=== PATIENT | male | born 1950 | race African-American/Black ===

== ENCOUNTER 2017-02-04 18:14 | Emergency (ER) | payer MEDICARE, OTHER ==
[~2017-02-04] VITALS: Ht 188 cm; Wt 110.0 kg
[~2017-02-04 18:14] MED LIST: AMLO2.5T45 PO; ASPI-986 PO; BACL-141 PO; FURO-152 PO; LISI-186 PO; METO-396 PO
[2017-02-04 20:41] LABS: CLARITY URINE CLEAR (CLEAR); COLOR URINE YELLOW (YELLOW); KETONES URINE NEGATIVE (NEGATIVE); LEUKOCYTE ESTERASE URINE TRACE (NEGATIVE); NITRITE URINE NEGATIVE (NEGATIVE); OCCULT BLOOD URINE 3+ (NEGATIVE); PROTEIN URINE NEGATIVE (NEGATIVE); SPECIFIC GRAVITY URINE 1.011 (1.005-1.030); UROBILINOGEN URINE 0.2 E.U./dL (0.2-1.0)
[2017-02-04] MEDS ORDERED: KETOROLAC 60MG/2ML VIAL IM ONE (21:00)
[2017-02-04] MEDS ORDERED: TRAMADOL 50MG TABLET PO ONE ×2 (21:30→22:00)
[2017-02-04 22:51] VITALS: BP 110/65
== END 2017-02-04 22:56 | disposition home or self-care (01) ==
LOC: ER 18:41
DX: N39.0 Urinary tract infection, site not specified (principal); R31.9 Hematuria, unspecified; I10 Essential (primary) hypertension; Z79.82 Long term (current) use of aspirin
CPT/HCPCS: 81001; 99283

== ENCOUNTER 2017-10-17 13:51 | Emergency (ER) | payer MEDICARE, OTHER ==
[~2017-10-17] VITALS: Ht 180.3 cm; Wt 90.0 kg
[2017-10-17] MEDS ORDERED: SODIUM CHLORIDE 0.9% 1,000 ML IV ONE (14:42)
[2017-10-17] MEDS ORDERED: ACETAMINOPHEN 325MG TABLET PO STA (14:42)
[2017-10-17] MEDS ORDERED: ONDANSETRON HCL 4MG/2ML INJ IV STA (14:42)
[2017-10-17 15:53] LABS: BASOPHILS % 1.1 % (0.0-2.0); EOSINOPHILS % 2.3 % (0.0-5.0); HEMATOCRIT. 41.6 % (42.0-52.0); HEMOGLOBIN. 13.8 g/dL (14.0-18.0); LYMPHOCYTES % 19.9 % (20.0-50.0); MEAN CORPUSCULAR HEMOGLOBIN 27.1 pg (28.0-32.0); MEAN CORPUSCULAR VOLUME 81.4 fL (80.0-94.0); MEAN PLATELET VOLUME 7.3 fl (7.4-10.4); MONOCYTES % 7.6 % (2.0-8.0); NEUTROPHILS % 69.1 % (40.0-76.0); PLATELET 202 x1000/uL (130-400); RED BLOOD CELL COUNT 5.11 mill/uL (4.7-6.1); RED CELL DISTRIBUTION WIDTH 14.2 % (11.6-14.6)
[2017-10-17 16:00] LABS: CHLORIDE 105 mEq/L (98-107)
[2017-10-17 16:03] LABS: ETHANOL BLOOD < 10 mg/dL
[2017-10-17] MEDS ORDERED: IBUPROFEN 400MG TABLET PO ONE ×2 (17:00→17:15)
[2017-10-17 17:28] VITALS: BP 146/88
[2017-10-18] MEDS ORDERED: CYCL10TA7 MT (09:55)
== END 2017-10-17 17:32 | disposition home or self-care (01) ==
LOC: ER 14:01
DX: R51 Headache (principal); M54.2 Cervicalgia; I10 Essential (primary) hypertension; Z90.49 Acquired absence of other specified parts of digestive tract; Z86.73 Personal history of transient ischemic attack (TIA), and cerebral infarction without residual deficits
CPT/HCPCS: 36415; 70450; 72125; 80053; 84484; 85025; 93005; 96374; 99285; G0482; J2405; J7030

== ENCOUNTER 2017-10-17 23:40 | Inpatient (IN) | payer MEDICARE, OTHER ==
[~2017-10-17] VITALS: Ht 190.5 cm; Wt 98.9 kg
[2017-10-18] VITALS (7 sets, daily range): BP systolic 115–169; BP diastolic 70–100
[2017-10-18] MEDS ORDERED: CLONIDINE 0.2MG TABLET PO ONE (00:15)
[2017-10-18 00:37] LABS: EOSINOPHILS % 3.4 % (0.0-5.0); HEMATOCRIT. 40.6 % (42.0-52.0); HEMOGLOBIN. 13.6 g/dL (14.0-18.0); LYMPHOCYTES % 32.2 % (20.0-50.0); MEAN CORPUSCULAR VOLUME 80.9 fL (80.0-94.0); MEAN PLATELET VOLUME 7.2 fl (7.4-10.4); MONOCYTES % 9.9 % (2.0-8.0); NEUTROPHILS % 53.5 % (40.0-76.0); PLATELET 196 x1000/uL (130-400); RED BLOOD CELL COUNT 5.02 mill/uL (4.7-6.1); RED CELL DISTRIBUTION WIDTH 13.9 % (11.6-14.6)
[2017-10-18 00:43] LABS: CHLORIDE 104 mEq/L (98-107)
[2017-10-18 00:44] LABS: PARTIAL THROMBOPLASTIN TIME 25.8 sec (23.4-31.0)
[2017-10-18 00:46] LABS: ETHANOL BLOOD < 10 mg/dL
[2017-10-18 00:50] LABS: CLARITY URINE CLEAR (CLEAR); COLOR URINE YELLOW (YELLOW); KETONES URINE NEGATIVE (NEGATIVE); LEUKOCYTE ESTERASE URINE 1+ (NEGATIVE); NITRITE URINE POSITIVE (NEGATIVE); OCCULT BLOOD URINE 1+ (NEGATIVE); PROTEIN URINE NEGATIVE (NEGATIVE); SPECIFIC GRAVITY URINE 1.017 (1.005-1.030); UROBILINOGEN URINE 0.2 E.U./dL (0.2-1.0)
[2017-10-18] MEDS ORDERED: ONDANSETRON HCL 4MG/2ML INJ IV ONE ×2 (01:00→02:00)
[2017-10-18 01:03] LABS: *AMPHETAMINES SCREEN URINE NEGATIVE (NEGATIVE); *BARBITURATES SCREEN URINE NEGATIVE (NEGATIVE)
[2017-10-18 01:04] LABS: *BENZODIAZEPINES SCREEN URINE NEGATIVE (NEGATIVE); *COCAINE SCREEN URINE NEGATIVE (NEGATIVE); CANNABINOID URINE SCREEN NEGATIVE (NEGATIVE); METHADONE URINE SCREEN NEGATIVE (NEGATIVE); OPIATES URINE SCREEN NEGATIVE (NEGATIVE); PHENCYCLIDINE URINE SCREEN NEGATIVE (NEGATIVE)
[2017-10-18] MEDS ORDERED: MORPHINE SULFATE 4 MG/ML CPJ (NOT FOR IM USE) IV ONE (02:00)
[2017-10-18] MEDS ORDERED: HYDROCODONE/ACETAMINOPHEN 5/325MG TABLET PO ONE ×2 (02:30→04:30)
[2017-10-18] MEDS ORDERED: CEFTRIAXONE 1 G PREMIX 50 ML IV ONE (03:00)
[2017-10-18] MEDS ORDERED: CYCL10TA7 MT (09:55)
[2017-10-18] MEDS ORDERED: ONDANSETRON HCL 4MG/2ML INJ IV PRN (11:00)
[2017-10-18] MEDS ORDERED: ACETAMINOPHEN 650MG/20.3ML UDC GT PRN (11:00)
[2017-10-18] MEDS ORDERED: MEDICATION NOT ON FORMULARY EA (Amlodipine Besylate 1 TAB) PO SCH (11:15)
[2017-10-18] MEDS ORDERED: MEDICATION NOT ON FORMULARY EA (Aspirin 1 TAB) PO SCH (11:15)
[2017-10-18] MEDS ORDERED: MEDICATION NOT ON FORMULARY EA (Metoprolol Succinate 1 TAB) PO SCH (11:15)
[2017-10-18] MEDS ORDERED: MEDICATION NOT ON FORMULARY EA (Lisinopril 1 TAB) PO SCH (11:15)
[2017-10-18] MEDS: ASPIRIN 325MG TABLET PO SCH (11:45)
[2017-10-18] MEDS: AMLODIPINE 2.5MG TABLET PO SCH (11:47)
[2017-10-18] MEDS: LISINOPRIL 5MG TABLET PO SCH (11:50)
[2017-10-18] MEDS: METOPROLOL TARTRATE 25MG TABLET PO SCH ×2 (11:50→21:42)
[2017-10-18] MEDS: CYCLOBENZAPRINE 10MG TABLET PO SCH ×2 (11:51→17:58)
[2017-10-18] MEDS ORDERED: CALCIUM CARBONATE/VITAMIN D3 500MG TABLET PO SCH (12:15)
[2017-10-18] MEDS ORDERED: MEDICATION NOT ON FORMULARY EA (Cyclobenzaprine Hcl 1 TAB) MT SCH (13:00)
[2017-10-18 17:09] LABS: CREATINE KINASE 142 IU/L (39-308); CREATINE KINASE MB FRACTION 1.2 ng/mL (0.5-3.6)
[2017-10-18 20:31] LABS: FOLIC ACID (FOLATE) SERUM 13.5 ng/mL (>5.38)
[2017-10-18] MEDS ORDERED: ZOLPIDEM TARTRATE 5MG TABLET PO PRN (21:00)
[2017-10-19] VITALS: BP 119/71
[2017-10-19 00:56] LABS: AMMONIA 40 uMol/L (<32)
[2017-10-19 00:57] LABS: ETHANOL BLOOD < 10 mg/dL
[2017-10-19 01:02] LABS: CREATINE KINASE 112 IU/L (39-308)
[2017-10-19 01:03] LABS: T4 FREE 1.11 ng/dL (0.76-1.46)
[2017-10-19 01:04] LABS: CREATINE KINASE MB FRACTION < 1.0 ng/mL (0.5-3.6)
[2017-10-19] MEDS: CEFTRIAXONE 1,000 MG in DEXTROSE 5% WATER 50 ML IV SCH (02:12)
[2017-10-19 04:00] VITALS: BP 119/84
[2017-10-19] MEDS ORDERED: ACETAMINOPHEN 650MG/20.3ML UDC PO PRN (06:02)
[2017-10-19] MEDS: HYDROCODONE/ACETAMINOPHEN 5/325MG TABLET PO PRN ×2 (06:14→13:20)
[2017-10-19 07:56] LABS: BASOPHILS % 0.9 % (0.0-2.0); EOSINOPHILS % 4.3 % (0.0-5.0); HEMATOCRIT. 40.7 % (42.0-52.0); HEMOGLOBIN. 13.5 g/dL (14.0-18.0); LYMPHOCYTES % 39.1 % (20.0-50.0); MEAN CORPUSCULAR HEMOGLOBIN 26.9 pg (28.0-32.0); MEAN CORPUSCULAR VOLUME 81.2 fL (80.0-94.0); MEAN PLATELET VOLUME 7.4 fl (7.4-10.4); MONOCYTES % 8.9 % (2.0-8.0); NEUTROPHILS % 46.8 % (40.0-76.0); PLATELET 202 x1000/uL (130-400); RED BLOOD CELL COUNT 5.01 mill/uL (4.7-6.1); RED CELL DISTRIBUTION WIDTH 13.8 % (11.6-14.6)
[2017-10-19 08:00] VITALS: BP 131/88
[2017-10-19] MEDS: AMLODIPINE 2.5MG TABLET PO SCH (08:50)
[2017-10-19] MEDS: CYCLOBENZAPRINE 10MG TABLET PO SCH ×3 (08:51→18:24)
[2017-10-19] MEDS: ASPIRIN 325MG TABLET PO SCH (08:51)
[2017-10-19] MEDS: METOPROLOL TARTRATE 25MG TABLET PO SCH ×2 (08:51→21:00)
[2017-10-19] MEDS: LISINOPRIL 5MG TABLET PO SCH (08:51)
[2017-10-19 09:06] LABS: CHLORIDE 103 mEq/L (98-107)
[2017-10-19 09:17] LABS: LDL CHOLESTEROL 71 mg/dL (5-100)
[2017-10-19 09:19] LABS: HDL CHOLESTEROL 81 mg/dL (40-59)
[2017-10-19 12:00] VITALS: BP 128/78
[2017-10-19 16:00] VITALS: BP 130/79
[2017-10-19 20:00] VITALS: BP 113/70
[2017-10-20] VITALS (8 sets, daily range): BP systolic 107–141; BP diastolic 67–91
[2017-10-20] MEDS: CEFTRIAXONE 1,000 MG in DEXTROSE 5% WATER 50 ML IV SCH (02:00)
[2017-10-20] MEDS: HYDROCODONE/ACETAMINOPHEN 5/325MG TABLET PO PRN ×3 (02:00→21:22)
[2017-10-20] MEDS: METOPROLOL TARTRATE 25MG TABLET PO SCH ×2 (09:00→20:35)
[2017-10-20] MEDS: ASPIRIN 325MG TABLET PO SCH (09:07)
[2017-10-20] MEDS: LISINOPRIL 5MG TABLET PO SCH (09:08)
[2017-10-20] MEDS: CYCLOBENZAPRINE 10MG TABLET PO SCH ×3 (09:08→18:37)
[2017-10-20] MEDS: AMLODIPINE 2.5MG TABLET PO SCH (09:08)
[2017-10-20] MEDS ORDERED: NITROFURANTOIN 100MG M/M CAPSULE PO SCH (21:10)
== END 2017-10-20 22:03 | DRG 689 ==
LOC: ER 23:45 → 5WST 10-18 03:50 → ENRESERV 10-18 08:21
PROVIDERS: ADMIT Internal Medicine; ATTEND Internal Medicine
DX: N39.0 Urinary tract infection, site not specified (principal); G93.40 Encephalopathy, unspecified; G45.9 Transient cerebral ischemic attack, unspecified; G25.81 Restless legs syndrome; I10 Essential (primary) hypertension; R47.1 Dysarthria and anarthria; M25.561 Pain in right knee; M19.90 Unspecified osteoarthritis, unspecified site; R26.9 Unspecified abnormalities of gait and mobility; B96.1 Klebsiella pneumoniae [K. pneumoniae] as the cause of diseases classified elsewhere; N40.0 Benign prostatic hyperplasia without lower urinary tract symptoms; Z86.73 Personal history of transient ischemic attack (TIA), and cerebral infarction without residual deficits; Z90.49 Acquired absence of other specified parts of digestive tract; Z90.79 Acquired absence of other genital organ(s); Z88.6 Allergy status to analgesic agent; Z79.82 Long term (current) use of aspirin; Z79.899 Other long term (current) drug therapy
CPT/HCPCS: 36415; 70450; 70544; 70553; 71045; 80048; 80053; 80061; 80305; 81003; 82140; 82550; 82553; 82607; 82746; 83036; 83880; 84439; 84443; 84481; 84484; 85025; 85610; 85730; 87077; 87086; 87186; 92523; 92610; 93005; 93306; 93880; 96365; 96375; 97110; 97162; 97166; 97530; 99285; G0482; J0696; J2270; J2405; J7040; J7060

== ENCOUNTER 2017-10-20 21:30 | Inpatient (IN) | payer MEDICARE, OTHER ==
[~2017-10-20] VITALS: Ht 190.5 cm; Wt 102.1 kg
[~2017-10-20 21:30] MED LIST changes: -BACL-141 PO; +CYCL10TA7 MT
[2017-10-20 21:43] VITALS: BP 123/82
[2017-10-20] MEDS ORDERED: ONDANSETRON HCL 4MG/2ML INJ IV PRN (22:30)
[2017-10-20] MEDS ORDERED: ACETAMINOPHEN 650MG/20.3ML UDC PO PRN (22:30)
[2017-10-21] MEDS: ZOLPIDEM TARTRATE 5MG TABLET PO PRN (00:36)
[2017-10-21 00:45] VITALS: BP 123/82
[2017-10-21] MEDS: HYDROCODONE/ACETAMINOPHEN 5/325MG TABLET PO PRN ×3 (06:36→18:49)
[2017-10-21 06:44] LABS: BASOPHILS % 0.5 % (0.0-2.0); EOSINOPHILS % 5.3 % (0.0-5.0); HEMATOCRIT. 44.9 % (42.0-52.0); HEMOGLOBIN. 14.7 g/dL (14.0-18.0); LYMPHOCYTES % 36.2 % (20.0-50.0); MEAN CORPUSCULAR HEMOGLOBIN 26.6 pg (28.0-32.0); MEAN CORPUSCULAR VOLUME 81.2 fL (80.0-94.0); MEAN PLATELET VOLUME 7.1 fl (7.4-10.4); MONOCYTES % 8.6 % (2.0-8.0); NEUTROPHILS % 49.4 % (40.0-76.0); PLATELET 210 x1000/uL (130-400); RED BLOOD CELL COUNT 5.53 mill/uL (4.7-6.1); RED CELL DISTRIBUTION WIDTH 13.5 % (11.6-14.6)
[2017-10-21 07:06] LABS: CHLORIDE 100 mEq/L (98-107)
[2017-10-21 08:00] VITALS: BP 120/85
[2017-10-21] MEDS: AMLODIPINE 2.5MG TABLET PO SCH (08:17)
[2017-10-21] MEDS: ASPIRIN 325MG TABLET PO SCH (08:17)
[2017-10-21] MEDS: NITROFURANTOIN 100MG M/M CAPSULE PO SCH ×2 (08:18→21:45)
[2017-10-21] MEDS: LISINOPRIL 5MG TABLET PO SCH (08:19)
[2017-10-21] MEDS: CYCLOBENZAPRINE 10MG TABLET PO SCH ×3 (08:19→18:48)
[2017-10-21] MEDS: METOPROLOL TARTRATE 25MG TABLET PO SCH ×2 (08:28→21:00)
[2017-10-21] MEDS: DOCUSATE SODIUM 100MG CAPSULE PO SCH (18:48)
[2017-10-21 20:00] VITALS: BP 116/72
[2017-10-21] MEDS: POLYETHYLENE GLYCOL 3350 (17GM) 1 DOSE PACK PO SCH (21:00)
[2017-10-22] MEDS: ZOLPIDEM TARTRATE 5MG TABLET PO PRN ×2 (00:27→23:39)
[2017-10-22] MEDS: PANTOPRAZOLE 40MG DR TABLET PO SCH (06:31)
[2017-10-22] MEDS: CYCLOBENZAPRINE 10MG TABLET PO SCH ×3 (07:58→17:57)
[2017-10-22] MEDS: ASPIRIN 325MG TABLET PO SCH (07:58)
[2017-10-22] MEDS: NITROFURANTOIN 100MG M/M CAPSULE PO SCH (07:58)
[2017-10-22] MEDS: DOCUSATE SODIUM 100MG CAPSULE PO SCH ×2 (07:59→17:57)
[2017-10-22] MEDS: AMLODIPINE 2.5MG TABLET PO SCH (07:59)
[2017-10-22] MEDS: LISINOPRIL 5MG TABLET PO SCH (07:59)
[2017-10-22 08:00] VITALS: BP 99/62
[2017-10-22] MEDS: ENOXAPARIN 30MG/0.3ML SYR SUBCUT SCH ×2 (08:00→21:58)
[2017-10-22] MEDS ORDERED: FERROUS SULFATE 325MG TABLET PO SCH (09:00)
[2017-10-22] MEDS: LIDOCAINE 5% PATCH TOP SCH (11:52)
[2017-10-22] MEDS: METHYL SALICYLATE/MENTHOL CREAM 85GM TOP SCH ×3 (12:38→23:43)
[2017-10-22] MEDS: BACLOFEN 10MG TABLET PO SCH ×2 (13:42→21:59)
[2017-10-22] MEDS: HYDROCODONE/ACETAMINOPHEN 5/325MG TABLET PO PRN (14:46)
[2017-10-22 20:00] VITALS: BP 98/60
[2017-10-22] MEDS: POLYETHYLENE GLYCOL 3350 (17GM) 1 DOSE PACK PO SCH (21:00)
[2017-10-22] MEDS ORDERED: NITROFURANTOIN MACROCRYSTAL 100 MG CAPSULE PO SCH (23:30)
[2017-10-23] MEDS: METHYL SALICYLATE/MENTHOL CREAM 85GM TOP SCH ×3 (06:00→18:19)
[2017-10-23] MEDS: PANTOPRAZOLE 40MG DR TABLET PO SCH (06:23)
[2017-10-23] MEDS: BACLOFEN 10MG TABLET PO SCH (06:23)
[2017-10-23 07:27] LABS: PHOSPHORUS 3.5 mg/dL (2.5-4.9)
[2017-10-23 08:00] VITALS: BP 106/69
[2017-10-23 08:35] LABS: PROSTRATE SPECIFIC AG TOTAL 0.86 ng/mL (0.0-4.0)
[2017-10-23] MEDS: ASPIRIN 325MG TABLET PO SCH (08:40)
[2017-10-23] MEDS: NITROFURANTOIN 100MG M/M CAPSULE PO SCH ×2 (08:40→21:28)
[2017-10-23] MEDS: AMLODIPINE 2.5MG TABLET PO SCH (08:41)
[2017-10-23] MEDS: CYCLOBENZAPRINE 10MG TABLET PO SCH ×2 (08:42→14:38)
[2017-10-23] MEDS: DOCUSATE SODIUM 100MG CAPSULE PO SCH ×2 (08:42→18:18)
[2017-10-23] MEDS: LISINOPRIL 5MG TABLET PO SCH (08:42)
[2017-10-23] MEDS: LIDOCAINE 5% PATCH TOP SCH (08:43)
[2017-10-23] MEDS: ENOXAPARIN 30MG/0.3ML SYR SUBCUT SCH ×2 (08:43→21:29)
[2017-10-23 09:50] LABS: FOLIC ACID (FOLATE) SERUM 10.6 ng/mL (>5.38)
[2017-10-23] MEDS: HYDROCODONE/ACETAMINOPHEN 5/325MG TABLET PO PRN ×2 (10:15→14:39)
[2017-10-23 20:00] VITALS: BP 112/76
[2017-10-23] MEDS: POLYETHYLENE GLYCOL 3350 (17GM) 1 DOSE PACK PO SCH (21:28)
[2017-10-24] MEDS: CYCLOBENZAPRINE 10MG TABLET PO SCH ×4 (00:22→17:00)
[2017-10-24] MEDS: ZOLPIDEM TARTRATE 5MG TABLET PO PRN (00:22)
[2017-10-24] MEDS: METHYL SALICYLATE/MENTHOL CREAM 85GM TOP SCH ×4 (05:59→17:43)
[2017-10-24 08:00] VITALS: BP 104/60
[2017-10-24 09:24] VITALS: BP 120/78
[2017-10-24] MEDS: NITROFURANTOIN 100MG M/M CAPSULE PO SCH ×2 (09:27→21:05)
[2017-10-24] MEDS: LISINOPRIL 5MG TABLET PO SCH (09:27)
[2017-10-24] MEDS: DOCUSATE SODIUM 100MG CAPSULE PO SCH ×2 (09:28→17:10)
[2017-10-24] MEDS: AMLODIPINE 2.5MG TABLET PO SCH (09:28)
[2017-10-24] MEDS: ASPIRIN 325MG TABLET PO SCH (09:28)
[2017-10-24] MEDS: ENOXAPARIN 30MG/0.3ML SYR SUBCUT SCH ×2 (09:30→21:06)
[2017-10-24] MEDS: LIDOCAINE 5% PATCH TOP SCH (09:37)
[2017-10-24] MEDS: FAMOTIDINE 20MG TABLET PO SCH ×2 (10:00→21:05)
[2017-10-24] MEDS: HYDROCODONE/ACETAMINOPHEN 5/325MG TABLET PO PRN ×3 (11:30→22:37)
[2017-10-24 20:00] VITALS: BP 123/73
[2017-10-24] MEDS: POLYETHYLENE GLYCOL 3350 (17GM) 1 DOSE PACK PO SCH (21:00)
[2017-10-24] MEDS ORDERED: CYCLOBENZAPRINE 10MG TABLET PO NR (22:00)
[2017-10-25] MEDS: METHYL SALICYLATE/MENTHOL CREAM 85GM TOP SCH ×4 (00:51→17:39)
[2017-10-25] MEDS: ZOLPIDEM TARTRATE 5MG TABLET PO PRN (00:59)
[2017-10-25 08:00] VITALS: BP 110/70
[2017-10-25] MEDS: NITROFURANTOIN 100MG M/M CAPSULE PO SCH ×2 (09:01→22:04)
[2017-10-25] MEDS: LISINOPRIL 5MG TABLET PO SCH (09:02)
[2017-10-25] MEDS: FAMOTIDINE 20MG TABLET PO SCH ×2 (09:02→22:04)
[2017-10-25] MEDS: ASPIRIN 325MG TABLET PO SCH (09:03)
[2017-10-25] MEDS: AMLODIPINE 2.5MG TABLET PO SCH (09:03)
[2017-10-25] MEDS: DOCUSATE SODIUM 100MG CAPSULE PO SCH ×2 (09:03→17:36)
[2017-10-25] MEDS: HYDROCODONE/ACETAMINOPHEN 5/325MG TABLET PO PRN (09:04)
[2017-10-25] MEDS: CYCLOBENZAPRINE 10MG TABLET PO PRN ×2 (09:05→17:51)
[2017-10-25] MEDS: ENOXAPARIN 30MG/0.3ML SYR SUBCUT SCH ×2 (09:05→22:04)
[2017-10-25] MEDS: LIDOCAINE 5% PATCH TOP SCH (09:06)
[2017-10-25 18:23] LABS: AMMONIA 24 uMol/L (<32)
[2017-10-25 20:00] VITALS: BP 119/80
[2017-10-25] MEDS: GABAPENTIN 100MG CAPSULE PO SCH (22:04)
[2017-10-25] MEDS: POLYETHYLENE GLYCOL 3350 (17GM) 1 DOSE PACK PO SCH (22:04)
[2017-10-26] MEDS: ZOLPIDEM TARTRATE 5MG TABLET PO PRN (00:30)
[2017-10-26] MEDS: METHYL SALICYLATE/MENTHOL CREAM 85GM TOP SCH ×5 (06:00→23:55)
[2017-10-26] MEDS: GABAPENTIN 100MG CAPSULE PO SCH ×3 (06:00→22:46)
[2017-10-26] MEDS: CYCLOBENZAPRINE 10MG TABLET PO PRN ×2 (06:59→13:42)
[2017-10-26] MEDS: HYDROCODONE/ACETAMINOPHEN 5/325MG TABLET PO PRN ×2 (07:00→13:41)
[2017-10-26 07:54] VITALS: BP 115/72
[2017-10-26] MEDS: NITROFURANTOIN 100MG M/M CAPSULE PO SCH ×2 (08:53→20:45)
[2017-10-26] MEDS: ASPIRIN 325MG TABLET PO SCH (08:53)
[2017-10-26] MEDS: AMLODIPINE 2.5MG TABLET PO SCH (08:53)
[2017-10-26] MEDS: LISINOPRIL 5MG TABLET PO SCH (08:53)
[2017-10-26] MEDS: FAMOTIDINE 20MG TABLET PO SCH ×2 (08:53→20:45)
[2017-10-26] MEDS: DOCUSATE SODIUM 100MG CAPSULE PO SCH ×2 (08:53→17:36)
[2017-10-26] MEDS: LIDOCAINE 5% PATCH TOP SCH (08:54)
[2017-10-26] MEDS: ENOXAPARIN 30MG/0.3ML SYR SUBCUT SCH ×2 (09:04→20:45)
[2017-10-26 20:00] VITALS: BP 124/81
[2017-10-26] MEDS: POLYETHYLENE GLYCOL 3350 (17GM) 1 DOSE PACK PO SCH (20:46)
[2017-10-27] MEDS: ZOLPIDEM TARTRATE 5MG TABLET PO PRN (00:32)
[2017-10-27] MEDS: METHYL SALICYLATE/MENTHOL CREAM 85GM TOP SCH ×3 (06:00→17:06)
[2017-10-27] MEDS: GABAPENTIN 100MG CAPSULE PO SCH ×3 (06:24→21:28)
[2017-10-27] MEDS: CYCLOBENZAPRINE 10MG TABLET PO PRN ×2 (06:29→13:30)
[2017-10-27] MEDS: HYDROCODONE/ACETAMINOPHEN 5/325MG TABLET PO PRN ×2 (06:32→13:21)
[2017-10-27 08:01] VITALS: BP 102/60
[2017-10-27] MEDS: NITROFURANTOIN 100MG M/M CAPSULE PO SCH ×2 (08:45→21:28)
[2017-10-27] MEDS: CYANOCOBALAMIN 1000MCG TABLET PO SCH (08:45)
[2017-10-27] MEDS: DOCUSATE SODIUM 100MG CAPSULE PO SCH ×2 (08:46→17:06)
[2017-10-27] MEDS: ENOXAPARIN 30MG/0.3ML SYR SUBCUT SCH ×2 (08:46→21:29)
[2017-10-27] MEDS: FAMOTIDINE 20MG TABLET PO SCH ×2 (08:46→21:29)
[2017-10-27] MEDS: ASPIRIN 325MG TABLET PO SCH (08:46)
[2017-10-27] MEDS: LIDOCAINE 5% PATCH TOP SCH (08:47)
[2017-10-27] MEDS: AMLODIPINE 2.5MG TABLET PO SCH (08:48)
[2017-10-27] MEDS: LISINOPRIL 5MG TABLET PO SCH (08:48)
[2017-10-27 13:10] VITALS: BP 124/88
[2017-10-27 20:00] VITALS: BP 124/90
[2017-10-27] MEDS: POLYETHYLENE GLYCOL 3350 (17GM) 1 DOSE PACK PO SCH (21:00)
[2017-10-28] MEDS: ZOLPIDEM TARTRATE 5MG TABLET PO PRN (00:43)
[2017-10-28] MEDS: METHYL SALICYLATE/MENTHOL CREAM 85GM TOP SCH ×4 (06:00→17:56)
[2017-10-28] MEDS: CYCLOBENZAPRINE 10MG TABLET PO PRN ×2 (06:24→18:04)
[2017-10-28] MEDS: GABAPENTIN 100MG CAPSULE PO SCH ×3 (06:24→22:13)
[2017-10-28] MEDS: HYDROCODONE/ACETAMINOPHEN 5/325MG TABLET PO PRN ×2 (06:24→18:07)
[2017-10-28 06:36] LABS: BASOPHILS % 0.8 % (0.0-2.0); EOSINOPHILS % 4.5 % (0.0-5.0); HEMATOCRIT. 40.2 % (42.0-52.0); HEMOGLOBIN. 13.4 g/dL (14.0-18.0); MEAN CORPUSCULAR HEMOGLOBIN 27.3 pg (28.0-32.0); MEAN CORPUSCULAR VOLUME 81.8 fL (80.0-94.0); MEAN PLATELET VOLUME 7.1 fl (7.4-10.4); MONOCYTES % 12.3 % (2.0-8.0); NEUTROPHILS % 42.4 % (40.0-76.0); PLATELET 210 x1000/uL (130-400); RED BLOOD CELL COUNT 4.91 mill/uL (4.7-6.1); RED CELL DISTRIBUTION WIDTH 13.7 % (11.6-14.6)
[2017-10-28 06:37] LABS: CHLORIDE 103 mEq/L (98-107)
[2017-10-28 06:47] LABS: PHOSPHORUS 3.8 mg/dL (2.5-4.9)
[2017-10-28 08:14] VITALS: BP 116/65
[2017-10-28] MEDS: LIDOCAINE 5% PATCH TOP SCH (09:33)
[2017-10-28] MEDS: ENOXAPARIN 30MG/0.3ML SYR SUBCUT SCH ×2 (09:33→22:10)
[2017-10-28] MEDS: ASPIRIN 325MG TABLET PO SCH (09:33)
[2017-10-28] MEDS: FAMOTIDINE 20MG TABLET PO SCH ×2 (09:33→22:10)
[2017-10-28] MEDS: AMLODIPINE 2.5MG TABLET PO SCH (09:34)
[2017-10-28] MEDS: CYANOCOBALAMIN 1000MCG TABLET PO SCH (09:34)
[2017-10-28] MEDS: LISINOPRIL 5MG TABLET PO SCH (09:34)
[2017-10-28] MEDS: DOCUSATE SODIUM 100MG CAPSULE PO SCH ×2 (09:34→17:57)
[2017-10-28 19:06] LABS: 25-HYDROXY VITAMIN D3 23 ng/mL (.)
[2017-10-28 20:00] VITALS: BP 114/84
[2017-10-28] MEDS: POLYETHYLENE GLYCOL 3350 (17GM) 1 DOSE PACK PO SCH (22:09)
[2017-10-29] MEDS: HYDROCODONE/ACETAMINOPHEN 5/325MG TABLET PO PRN ×2 (00:16→10:45)
[2017-10-29] MEDS: GABAPENTIN 100MG CAPSULE PO SCH ×2 (05:53→14:30)
[2017-10-29] MEDS: METHYL SALICYLATE/MENTHOL CREAM 85GM TOP SCH ×3 (05:58→12:00)
[2017-10-29 08:00] VITALS: BP 112/78
[2017-10-29] MEDS: LIDOCAINE 5% PATCH TOP SCH (09:25)
[2017-10-29] MEDS: DOCUSATE SODIUM 100MG CAPSULE PO SCH (09:26)
[2017-10-29] MEDS: CYANOCOBALAMIN 1000MCG TABLET PO SCH (09:26)
[2017-10-29] MEDS: FAMOTIDINE 20MG TABLET PO SCH (09:26)
[2017-10-29] MEDS: ASPIRIN 325MG TABLET PO SCH (09:26)
[2017-10-29] MEDS: LISINOPRIL 5MG TABLET PO SCH (09:30)
[2017-10-29] MEDS: AMLODIPINE 2.5MG TABLET PO SCH (09:30)
[2017-10-29] MEDS: ENOXAPARIN 30MG/0.3ML SYR SUBCUT SCH (09:31)
[2017-10-29] MEDS: CYCLOBENZAPRINE 10MG TABLET PO PRN (10:45)
[2017-10-29 11:05] VITALS: BP 112/78
== END 2017-10-29 15:35 | disposition home or self-care (01) | DRG 71 ==
PROVIDERS: ADMIT Physical Medicine & Rehabilitation Spinal Cord Injury Medicine; ATTEND Internal Medicine
DX: G93.40 Encephalopathy, unspecified (principal); G45.9 Transient cerebral ischemic attack, unspecified; E72.20 Disorder of urea cycle metabolism, unspecified; N39.0 Urinary tract infection, site not specified; R53.81 Other malaise; R26.9 Unspecified abnormalities of gait and mobility; R47.1 Dysarthria and anarthria; I10 Essential (primary) hypertension; N40.0 Benign prostatic hyperplasia without lower urinary tract symptoms; G25.81 Restless legs syndrome; M19.90 Unspecified osteoarthritis, unspecified site; M25.561 Pain in right knee; F39 Unspecified mood [affective] disorder; F41.9 Anxiety disorder, unspecified; M17.10 Unilateral primary osteoarthritis, unspecified knee; Z90.49 Acquired absence of other specified parts of digestive tract; Z82.49 Family history of ischemic heart disease and other diseases of the circulatory system; Z87.440 Personal history of urinary (tract) infections; Z90.79 Acquired absence of other genital organ(s); G89.29 Other chronic pain
CPT/HCPCS: 36415; 73560; 73590; 73630; 80053; 80061; 82140; 82306; 82607; 82746; 83036; 83735; 84100; 84134; 84153; 84443; 84630; 85025; 92523; 93005; 93970; 97110; 97112; 97116; 97150; 97162; 97166; 97530; 97535; J1650; G0103

== ENCOUNTER 2019-06-21 14:40 | Inpatient (IN) | payer MEDICARE, MEDICAID, OTHER ==
[~2019-06-21] VITALS: Ht 182.9 cm; Wt 99.8 kg
[~2019-06-21 14:40] MED LIST changes: -AMLO2.5T45 PO; -ASPI-986 PO; -CYCL10TA7 MT; -FURO-152 PO; -METO-396 PO
[2019-06-21] MEDS ORDERED: NITROGLYCERIN 0.4MG TABLET SL SL PRN (16:00)
[2019-06-21] MEDS ORDERED: ASPIRIN 81MG TABLET PO ONE (16:00)
[2019-06-21 16:23] LABS: BASOPHILS % 1.1 % (0.0-2.0); EOSINOPHILS % 0.9 % (0.0-5.0); HEMATOCRIT. 42.3 % (42.0-52.0); HEMOGLOBIN. 14.1 g/dL (14.0-18.0); LYMPHOCYTES % 17.6 % (20.0-50.0); MEAN CORPUSCULAR HEMOGLOBIN 27.8 pg (28.0-32.0); MEAN CORPUSCULAR VOLUME 83.2 fL (80.0-94.0); MONOCYTES % 8.7 % (2.0-8.0); NEUTROPHILS % 71.7 % (40.0-76.0); PLATELET 180 x1000/uL (130-400); RED BLOOD CELL COUNT 5.09 mill/uL (4.7-6.1)
[2019-06-21 16:31] LABS: CHLORIDE 105 mEq/L (98-107)
[2019-06-21 16:36] LABS: ETHANOL BLOOD < 10 mg/dL
[2019-06-21] MEDS ORDERED: ACETAMINOPHEN 325MG TABLET PO ONE (17:45)
[2019-06-21 20:00] LABS: *BENZODIAZEPINES SCREEN URINE NEGATIVE (NEGATIVE); *COCAINE SCREEN URINE NEGATIVE (NEGATIVE); CANNABINOID URINE SCREEN NEGATIVE (NEGATIVE); METHADONE URINE SCREEN NEGATIVE (NEGATIVE); OPIATES URINE SCREEN NEGATIVE (NEGATIVE); PHENCYCLIDINE URINE SCREEN NEGATIVE (NEGATIVE)
[2019-06-21 20:01] LABS: *AMPHETAMINES SCREEN URINE NEGATIVE (NEGATIVE); *BARBITURATES SCREEN URINE NEGATIVE (NEGATIVE)
[2019-06-21] MEDS ORDERED: IBUPROFEN 600MG TABLET PO PRN ×2 (21:00→22:30)
[2019-06-21] MEDS ORDERED: ACETAMINOPHEN 325MG TABLET PO PRN (21:00)
[2019-06-21] MEDS ORDERED: CLONIDINE 0.1MG TABLET PO PRN (21:00)
[2019-06-21] MEDS ORDERED: AMLODIPINE 2.5MG TABLET PO SCH (21:00)
[2019-06-21] MEDS ORDERED: HYDROCODONE/ACETAMINOPHEN 5/325MG TABLET PO ONE (21:00)
[2019-06-21] MEDS ORDERED: ONDANSETRON HCL 4MG/2ML INJ IV PRN (21:00)
[2019-06-21] MEDS ORDERED: ZOLPIDEM TARTRATE 5MG TABLET PO PRN (21:00)
[2019-06-21] MEDS ORDERED: ENOXAPARIN 40MG/0.4ML SYR SUBCUT SCH (21:00)
[2019-06-21] MEDS ORDERED: HYDRALAZINE 20MG/ML VIAL IV PRN ×2 (21:00→22:30)
[2019-06-21] MEDS ORDERED: GUAIFENESIN 200MG/10ML SUGAR FREE UDC PO PRN (21:00)
[2019-06-21] MEDS ORDERED: FAMOTIDINE 20MG TABLET PO SCH (21:00)
[2019-06-21] MEDS ORDERED: DIPHENHYDRAMINE 50MG/ML VIAL IV PRN (21:00)
[2019-06-21] MEDS ORDERED: MAGNESIUM/ALUMINUM HYDROXIDE/SIMETHICONE 30ML UDC PO PRN (21:00)
[2019-06-21] MEDS ORDERED: SODIUM CHLORIDE 0.9% INJ 3ML FLUSH IVF SCH (22:00)
[2019-06-21 22:30] VITALS: BP 130/84
[2019-06-21] MEDS ORDERED: MAGN250T29 MT (23:25)
[2019-06-21] MEDS ORDERED: ERGO50CA PO (23:25)
[2019-06-21] MEDS ORDERED: ASPI-1497 PO (23:25)
[2019-06-21] MEDS ORDERED: AMLO10TA80 PO (23:25)
[2019-06-21] MEDS: FAMOTIDINE 20MG TABLET PO SCH (23:54)
[2019-06-21] MEDS: AMLODIPINE 2.5MG TABLET PO SCH (23:54)
[2019-06-21] MEDS: SODIUM CHLORIDE 0.9% INJ 3ML FLUSH IVF SCH (23:55)
[2019-06-21] MEDS: ZOLPIDEM TARTRATE 5MG TABLET PO PRN (23:55)
[2019-06-22 04:00] VITALS: BP 139/87
[2019-06-22] MEDS: SODIUM CHLORIDE 0.9% INJ 3ML FLUSH IVF SCH ×3 (05:07→21:28)
[2019-06-22 08:00] VITALS: BP 146/99
[2019-06-22] MEDS: LISINOPRIL 10MG TABLET PO SCH (08:59)
[2019-06-22] MEDS: AMLODIPINE 2.5MG TABLET PO SCH ×2 (08:59→21:27)
[2019-06-22] MEDS ORDERED: LISINOPRIL 5MG TABLET PO SCH (09:00)
[2019-06-22] MEDS: ENOXAPARIN 40MG/0.4ML SYR SUBCUT SCH (09:00)
[2019-06-22] MEDS: HYDROCODONE/ACETAMINOPHEN 5/325MG TABLET PO PRN ×2 (09:01→22:14)
[2019-06-22] MEDS ORDERED: CYCL10TA7 PO (10:53)
[2019-06-22] MEDS ORDERED: MEDICATION NOT ON FORMULARY EA (Magnesium Oxide (Magnesium) 1 TAB) MT SCH (11:30)
[2019-06-22 12:00] VITALS: BP 152/100
[2019-06-22] MEDS: MAGNESIUM OXIDE 400MG TABLET PO SCH (12:10)
[2019-06-22] MEDS: CHOLECALCIFEROL (VIT D3) 400 UNIT TABLET PO SCH (12:10)
[2019-06-22] MEDS: ASPIRIN 81MG EC TABLET PO SCH (12:10)
[2019-06-22] MEDS ORDERED: CYCLOBENZAPRINE 10MG TABLET PO SCH ×2 (13:00→21:45)
[2019-06-22 16:00] VITALS: BP 133/90
[2019-06-22] MEDS: TAMSULOSIN HCL 0.4MG SR CAPSULE PO SCH (16:07)
[2019-06-22] MEDS: CYCLOBENZAPRINE 10MG TABLET PO SCH (16:08)
[2019-06-22 20:00] VITALS: BP 133/95
[2019-06-22] MEDS: FAMOTIDINE 20MG TABLET PO SCH (21:26)
[2019-06-22] MEDS: ZOLPIDEM TARTRATE 5MG TABLET PO PRN (21:27)
[2019-06-22] MEDS ORDERED: CYCLOBENZAPRINE 10MG TABLET PO ONE (21:45)
[2019-06-23] VITALS: BP 115/64
[2019-06-23 04:00] VITALS: BP 136/79
[2019-06-23] MEDS: SODIUM CHLORIDE 0.9% INJ 3ML FLUSH IVF SCH ×3 (06:40→21:11)
[2019-06-23] MEDS: MAGNESIUM OXIDE 400MG TABLET PO SCH (07:59)
[2019-06-23] MEDS: TAMSULOSIN HCL 0.4MG SR CAPSULE PO SCH (07:59)
[2019-06-23] MEDS: ASPIRIN 81MG EC TABLET PO SCH (07:59)
[2019-06-23] MEDS: CHOLECALCIFEROL (VIT D3) 400 UNIT TABLET PO SCH (07:59)
[2019-06-23] MEDS: LISINOPRIL 10MG TABLET PO SCH (07:59)
[2019-06-23] MEDS: CYCLOBENZAPRINE 10MG TABLET PO SCH ×3 (07:59→17:32)
[2019-06-23 08:00] VITALS: BP 132/76
[2019-06-23] MEDS: ENOXAPARIN 40MG/0.4ML SYR SUBCUT SCH (08:00)
[2019-06-23] MEDS: HYDROCODONE/ACETAMINOPHEN 5/325MG TABLET PO PRN ×2 (08:05→12:35)
[2019-06-23] MEDS: AMLODIPINE 2.5MG TABLET PO SCH ×2 (08:06→20:37)
[2019-06-23 16:00] VITALS: BP 138/74
[2019-06-23 20:00] VITALS: BP 128/85
[2019-06-23] MEDS: FAMOTIDINE 20MG TABLET PO SCH (20:37)
[2019-06-24] VITALS (7 sets, daily range): BP systolic 115–138; BP diastolic 78–92
[2019-06-24] MEDS: ZOLPIDEM TARTRATE 5MG TABLET PO PRN (00:06)
[2019-06-24] MEDS: HYDROCODONE/ACETAMINOPHEN 5/325MG TABLET PO PRN (05:02)
[2019-06-24] MEDS: SODIUM CHLORIDE 0.9% INJ 3ML FLUSH IVF SCH ×3 (05:12→22:05)
[2019-06-24 06:21] LABS: BASOPHILS % 0.7 % (0.0-2.0); EOSINOPHILS % 2.7 % (0.0-5.0); HEMATOCRIT. 41.7 % (42.0-52.0); HEMOGLOBIN. 13.9 g/dL (14.0-18.0); LYMPHOCYTES % 42.3 % (20.0-50.0); MEAN CORPUSCULAR HEMOGLOBIN 27.7 pg (28.0-32.0); MEAN PLATELET VOLUME 7.2 fl (7.4-10.4); MONOCYTES % 9.8 % (2.0-8.0); NEUTROPHILS % 44.5 % (40.0-76.0); PLATELET 186 x1000/uL (130-400); RED BLOOD CELL COUNT 5.02 mill/uL (4.7-6.1); RED CELL DISTRIBUTION WIDTH 13.8 % (11.6-14.6)
[2019-06-24 06:24] LABS: CHLORIDE 103 mEq/L (98-107)
[2019-06-24] MEDS: MAGNESIUM OXIDE 400MG TABLET PO SCH (09:00)
[2019-06-24] MEDS: LACTULOSE 20G/30ML UDC PO SCH ×2 (09:00→17:00)
[2019-06-24] MEDS: ENOXAPARIN 40MG/0.4ML SYR SUBCUT SCH (10:02)
[2019-06-24] MEDS: CYCLOBENZAPRINE 10MG TABLET PO SCH ×3 (10:03→18:42)
[2019-06-24] MEDS: CHOLECALCIFEROL (VIT D3) 400 UNIT TABLET PO SCH (10:03)
[2019-06-24] MEDS: TAMSULOSIN HCL 0.4MG SR CAPSULE PO SCH (10:10)
[2019-06-24] MEDS: ASPIRIN 81MG EC TABLET PO SCH (10:10)
[2019-06-24] MEDS: LISINOPRIL 10MG TABLET PO SCH (10:10)
[2019-06-24] MEDS: AMLODIPINE 2.5MG TABLET PO SCH ×2 (10:11→22:04)
[2019-06-24] MEDS: ACETAMINOPHEN 325MG TABLET PO PRN (20:05)
[2019-06-24] MEDS: FAMOTIDINE 20MG TABLET PO SCH (22:03)
[2019-06-25] VITALS: BP 117/85
[2019-06-25] MEDS: ZOLPIDEM TARTRATE 5MG TABLET PO PRN ×2 (01:55→22:35)
[2019-06-25 04:00] VITALS: BP 122/80
[2019-06-25] MEDS: SODIUM CHLORIDE 0.9% INJ 3ML FLUSH IVF SCH ×3 (06:37→21:08)
[2019-06-25] MEDS: HYDROCODONE/ACETAMINOPHEN 5/325MG TABLET PO PRN ×2 (07:02→15:18)
[2019-06-25 08:00] VITALS: BP 137/87
[2019-06-25] MEDS: LACTULOSE 20G/30ML UDC PO SCH ×2 (08:56→17:14)
[2019-06-25] MEDS: ENOXAPARIN 40MG/0.4ML SYR SUBCUT SCH (09:03)
[2019-06-25] MEDS: LISINOPRIL 10MG TABLET PO SCH (09:04)
[2019-06-25] MEDS: MAGNESIUM OXIDE 400MG TABLET PO SCH (09:04)
[2019-06-25] MEDS: TAMSULOSIN HCL 0.4MG SR CAPSULE PO SCH (09:04)
[2019-06-25] MEDS: ASPIRIN 81MG EC TABLET PO SCH (09:04)
[2019-06-25] MEDS: CHOLECALCIFEROL (VIT D3) 400 UNIT TABLET PO SCH (09:04)
[2019-06-25] MEDS: AMLODIPINE 2.5MG TABLET PO SCH ×2 (09:05→21:07)
[2019-06-25] MEDS: CYCLOBENZAPRINE 10MG TABLET PO SCH ×3 (09:05→17:14)
[2019-06-25 12:00] VITALS: BP 123/78
[2019-06-25 16:00] VITALS: BP 122/79
[2019-06-25] MEDS: ACETAMINOPHEN 325MG TABLET PO PRN (17:42)
[2019-06-25 20:00] VITALS: BP 123/84
[2019-06-25] MEDS: POLYETHYLENE GLYCOL 3350 (17GM) 1 DOSE PACK PO SCH (21:07)
[2019-06-25] MEDS: FAMOTIDINE 20MG TABLET PO SCH (21:08)
[2019-06-26] VITALS (8 sets, daily range): BP systolic 106–120; BP diastolic 73–80
[2019-06-26] MEDS: SODIUM CHLORIDE 0.9% INJ 3ML FLUSH IVF SCH ×3 (05:10→21:21)
[2019-06-26 06:21] LABS: BASOPHILS % 0.8 % (0.0-2.0); EOSINOPHILS % 2.3 % (0.0-5.0); HEMATOCRIT. 41.7 % (42.0-52.0); HEMOGLOBIN. 14.1 g/dL (14.0-18.0); LYMPHOCYTES % 34.1 % (20.0-50.0); MEAN CORPUSCULAR HEMOGLOBIN 28.1 pg (28.0-32.0); MEAN CORPUSCULAR VOLUME 82.8 fL (80.0-94.0); MEAN PLATELET VOLUME 7.3 fl (7.4-10.4); MONOCYTES % 11.2 % (2.0-8.0); NEUTROPHILS % 51.6 % (40.0-76.0); PLATELET 198 x1000/uL (130-400); RED BLOOD CELL COUNT 5.03 mill/uL (4.7-6.1); RED CELL DISTRIBUTION WIDTH 13.4 % (11.6-14.6)
[2019-06-26 06:35] LABS: CHLORIDE 103 mEq/L (98-107)
[2019-06-26] MEDS: LACTULOSE 20G/30ML UDC PO SCH ×2 (08:41→16:33)
[2019-06-26] MEDS: LISINOPRIL 10MG TABLET PO SCH (08:42)
[2019-06-26] MEDS: ASPIRIN 81MG EC TABLET PO SCH (08:42)
[2019-06-26] MEDS: TAMSULOSIN HCL 0.4MG SR CAPSULE PO SCH (08:43)
[2019-06-26] MEDS: MAGNESIUM OXIDE 400MG TABLET PO SCH (08:43)
[2019-06-26] MEDS: DOCUSATE SODIUM 100MG CAPSULE PO SCH ×2 (08:43→16:33)
[2019-06-26] MEDS: AMLODIPINE 2.5MG TABLET PO SCH ×2 (08:45→21:20)
[2019-06-26] MEDS: CHOLECALCIFEROL (VIT D3) 400 UNIT TABLET PO SCH (08:45)
[2019-06-26] MEDS: CYCLOBENZAPRINE 10MG TABLET PO SCH ×3 (08:45→16:33)
[2019-06-26] MEDS: ENOXAPARIN 40MG/0.4ML SYR SUBCUT SCH (08:46)
[2019-06-26] MEDS: HYDROCODONE/ACETAMINOPHEN 5/325MG TABLET PO PRN ×2 (09:07→16:27)
[2019-06-26] MEDS: POLYETHYLENE GLYCOL 3350 (17GM) 1 DOSE PACK PO SCH (21:00)
[2019-06-26] MEDS: FAMOTIDINE 20MG TABLET PO SCH (21:20)
== END 2019-06-26 22:40 | DRG 206 ==
LOC: ER 14:40 → 5WST 18:37 → EDBEDREQ 18:49 → EDBEDREQTM 18:49 → ENRESERV 20:51 → ER 22:17
PROVIDERS: ADMIT Internal Medicine; ATTEND Internal Medicine
DX: M94.0 Chondrocostal junction syndrome [Tietze] (principal); I42.9 Cardiomyopathy, unspecified; S82.201P Unspecified fracture of shaft of right tibia, subsequent encounter for closed fracture with malunion; M48.02 Spinal stenosis, cervical region; M19.90 Unspecified osteoarthritis, unspecified site; I10 Essential (primary) hypertension; D64.9 Anemia, unspecified; R53.81 Other malaise; R26.9 Unspecified abnormalities of gait and mobility; G25.81 Restless legs syndrome; G89.29 Other chronic pain; M47.812 Spondylosis without myelopathy or radiculopathy, cervical region; R51 Headache; R07.89 Other chest pain; M25.361 Other instability, right knee; R00.2 Palpitations; M48.061 Spinal stenosis, lumbar region without neurogenic claudication; L97.519 Non-pressure chronic ulcer of other part of right foot with unspecified severity; M17.31 Unilateral post-traumatic osteoarthritis, right knee; X58.XXXD Exposure to other specified factors, subsequent encounter; X58.XXXS Exposure to other specified factors, sequela; Z90.49 Acquired absence of other specified parts of digestive tract; Z91.81 History of falling; Z91.14 Patient's other noncompliance with medication regimen; Z91.013 Allergy to seafood; Z88.8 Allergy status to other drugs, medicaments and biological substances; Z79.899 Other long term (current) drug therapy; Z79.82 Long term (current) use of aspirin; T14.90XS Injury, unspecified, sequela
CPT/HCPCS: 36415; 71045; 72141; 72146; 72148; 73562; 80048; 80053; 80305; 80320; 83735; 83880; 84484; 85025; 93005; 93306; 93970; 97116; 97162; 97166; 99285; J1200; J1650; G0480

== ENCOUNTER 2019-06-26 22:40 | Inpatient (IN) | payer MEDICARE, OTHER ==
[~2019-06-26] VITALS: Ht 182.9 cm; Wt 99.8 kg
[2019-06-26 22:40] VITALS: BP 120/84
[~2019-06-26 22:40] MED LIST changes: +AMLO10TA80 PO; +ASPI-1497 PO; +CYCL10TA7 PO; +ERGO50CA PO; +MAGN250T29 MT
[2019-06-26 23:00] VITALS: BP 120/84
[2019-06-26] MEDS ORDERED: CLONIDINE 0.1MG TABLET PO PRN (23:15)
[2019-06-26] MEDS ORDERED: DIPHENHYDRAMINE 25MG CAPSULE PO PRN (23:15)
[2019-06-26] MEDS ORDERED: ONDANSETRON HCL 4MG/2ML INJ IV PRN (23:15)
[2019-06-26] MEDS ORDERED: IBUPROFEN 600MG TABLET PO PRN (23:15)
[2019-06-26] MEDS ORDERED: GUAIFENESIN 200MG/10ML SUGAR FREE UDC PO PRN (23:15)
[2019-06-26] MEDS ORDERED: MAGNESIUM/ALUMINUM HYDROXIDE/SIMETHICONE 30ML UDC PO PRN (23:15)
[2019-06-27] MEDS: ZOLPIDEM TARTRATE 5MG TABLET PO PRN ×2 (00:03→23:28)
[2019-06-27] MEDS: CYCLOBENZAPRINE 10MG TABLET PO SCH ×3 (05:31→21:53)
[2019-06-27] MEDS: LACTULOSE 20G/30ML UDC PO SCH ×3 (05:31→21:47)
[2019-06-27] MEDS: HYDROCODONE/ACETAMINOPHEN 5/325MG TABLET PO PRN ×2 (05:37→10:16)
[2019-06-27 06:40] LABS: BASOPHILS % 0.6 % (0.0-2.0); EOSINOPHILS % 2.6 % (0.0-5.0); HEMATOCRIT. 42.2 % (42.0-52.0); HEMOGLOBIN. 14.3 g/dL (14.0-18.0); LYMPHOCYTES % 30.4 % (20.0-50.0); MEAN CORPUSCULAR HEMOGLOBIN 28.1 pg (28.0-32.0); MEAN CORPUSCULAR VOLUME 82.8 fL (80.0-94.0); MEAN PLATELET VOLUME 7.2 fl (7.4-10.4); MONOCYTES % 9.9 % (2.0-8.0); NEUTROPHILS % 56.5 % (40.0-76.0); PLATELET 196 x1000/uL (130-400); RED CELL DISTRIBUTION WIDTH 13.7 % (11.6-14.6)
[2019-06-27 06:50] LABS: CHLORIDE 104 mEq/L (98-107)
[2019-06-27 08:02] VITALS: BP 110/80
[2019-06-27] MEDS: CHOLECALCIFEROL (VIT D3) 400 UNIT TABLET PO SCH (09:00)
[2019-06-27] MEDS: AMLODIPINE 2.5MG TABLET PO SCH ×2 (09:00→20:50)
[2019-06-27] MEDS: LISINOPRIL 10MG TABLET PO SCH (09:00)
[2019-06-27] MEDS: ASPIRIN 81MG EC TABLET PO SCH (10:16)
[2019-06-27] MEDS: ENOXAPARIN 40MG/0.4ML SYR SUBCUT SCH (10:16)
[2019-06-27] MEDS: TAMSULOSIN HCL 0.4MG SR CAPSULE PO SCH (10:17)
[2019-06-27] MEDS: MAGNESIUM OXIDE 400MG TABLET PO SCH (10:17)
[2019-06-27] MEDS: DOCUSATE SODIUM 100MG CAPSULE PO SCH ×2 (10:18→17:32)
[2019-06-27] MEDS: LIDOCAINE 5% PATCH TOP SCH (12:21)
[2019-06-27 20:00] VITALS: BP 120/79
[2019-06-27] MEDS: FAMOTIDINE 20MG TABLET PO SCH (20:50)
[2019-06-27] MEDS: ACETAMINOPHEN 325MG TABLET PO PRN (20:59)
[2019-06-27] MEDS: POLYETHYLENE GLYCOL 3350 (17GM) 1 DOSE PACK PO SCH (21:00)
[2019-06-28] MEDS: LACTULOSE 20G/30ML UDC PO SCH ×3 (06:00→21:10)
[2019-06-28] MEDS: CYCLOBENZAPRINE 10MG TABLET PO SCH ×3 (06:33→20:48)
[2019-06-28] MEDS: HYDROCODONE/ACETAMINOPHEN 5/325MG TABLET PO PRN ×3 (07:41→22:23)
[2019-06-28 08:00] VITALS: BP 119/78
[2019-06-28] MEDS: MAGNESIUM OXIDE 400MG TABLET PO SCH (08:41)
[2019-06-28] MEDS: TAMSULOSIN HCL 0.4MG SR CAPSULE PO SCH (08:41)
[2019-06-28] MEDS: ASPIRIN 81MG EC TABLET PO SCH (08:41)
[2019-06-28] MEDS: DOCUSATE SODIUM 100MG CAPSULE PO SCH ×2 (08:41→17:01)
[2019-06-28] MEDS: AMLODIPINE 2.5MG TABLET PO SCH ×2 (08:42→20:47)
[2019-06-28] MEDS: LIDOCAINE 5% PATCH TOP SCH (08:43)
[2019-06-28] MEDS: LISINOPRIL 10MG TABLET PO SCH (08:43)
[2019-06-28] MEDS: ENOXAPARIN 40MG/0.4ML SYR SUBCUT SCH (08:44)
[2019-06-28] MEDS: CHOLECALCIFEROL (VIT D3) 400 UNIT TABLET PO SCH (09:00)
[2019-06-28 20:00] VITALS: BP 116/80
[2019-06-28] MEDS: FAMOTIDINE 20MG TABLET PO SCH (20:47)
[2019-06-28] MEDS: POLYETHYLENE GLYCOL 3350 (17GM) 1 DOSE PACK PO SCH (21:00)
[2019-06-29] MEDS: ZOLPIDEM TARTRATE 5MG TABLET PO PRN ×2 (02:32→23:51)
[2019-06-29] MEDS: LACTULOSE 20G/30ML UDC PO SCH ×3 (05:50→22:00)
[2019-06-29] MEDS: CYCLOBENZAPRINE 10MG TABLET PO SCH ×3 (06:35→22:16)
[2019-06-29 06:47] LABS: BASOPHILS % 0.8 % (0.0-2.0); HEMATOCRIT. 40.8 % (42.0-52.0); LYMPHOCYTES % 37.4 % (20.0-50.0); MEAN CORPUSCULAR HEMOGLOBIN 28.3 pg (28.0-32.0); MEAN CORPUSCULAR VOLUME 82.4 fL (80.0-94.0); MEAN PLATELET VOLUME 7.4 fl (7.4-10.4); MONOCYTES % 12.2 % (2.0-8.0); NEUTROPHILS % 46.6 % (40.0-76.0); PLATELET 192 x1000/uL (130-400); RED BLOOD CELL COUNT 4.95 mill/uL (4.7-6.1); RED CELL DISTRIBUTION WIDTH 13.3 % (11.6-14.6)
[2019-06-29 07:16] LABS: FOLIC ACID (FOLATE) SERUM 11.4 ng/mL (>5.38)
[2019-06-29 07:20] LABS: CHLORIDE 104 mEq/L (98-107)
[2019-06-29 07:26] LABS: PHOSPHORUS 4.1 mg/dL (2.5-4.9); TOTAL IRON BINDING CAPACITY 281 ug/dL (250-450)
[2019-06-29 08:00] VITALS: BP 113/65
[2019-06-29 08:09] LABS: PROSTRATE SPECIFIC AG TOTAL 1.16 ng/mL (0.0-4.0)
[2019-06-29] MEDS: MAGNESIUM OXIDE 400MG TABLET PO SCH (08:27)
[2019-06-29] MEDS: DOCUSATE SODIUM 100MG CAPSULE PO SCH ×2 (08:27→17:55)
[2019-06-29] MEDS: ASPIRIN 81MG EC TABLET PO SCH (08:28)
[2019-06-29] MEDS: TAMSULOSIN HCL 0.4MG SR CAPSULE PO SCH (08:28)
[2019-06-29] MEDS: AMLODIPINE 2.5MG TABLET PO SCH ×2 (08:29→21:00)
[2019-06-29] MEDS: ENOXAPARIN 40MG/0.4ML SYR SUBCUT SCH (08:29)
[2019-06-29] MEDS: CHOLECALCIFEROL (VIT D3) 400 UNIT TABLET PO SCH (08:29)
[2019-06-29] MEDS: LISINOPRIL 10MG TABLET PO SCH (08:29)
[2019-06-29] MEDS: LIDOCAINE 5% PATCH TOP SCH (08:31)
[2019-06-29] MEDS: ACETAMINOPHEN 325MG TABLET PO PRN (09:16)
[2019-06-29] MEDS ORDERED: CYANOCOBALAMIN 1000MCG/ML VIAL IM SCH (14:45)
[2019-06-29 17:50] VITALS: BP 132/95
[2019-06-29] MEDS: HYDROCODONE/ACETAMINOPHEN 5/325MG TABLET PO PRN ×2 (18:05→22:17)
[2019-06-29 20:00] VITALS: BP 111/70
[2019-06-29] MEDS: FAMOTIDINE 20MG TABLET PO SCH (22:16)
[2019-06-29] MEDS: POLYETHYLENE GLYCOL 3350 (17GM) 1 DOSE PACK PO SCH (22:16)
[2019-06-30] MEDS: LACTULOSE 20G/30ML UDC PO SCH ×3 (05:13→22:00)
[2019-06-30] MEDS: CYCLOBENZAPRINE 10MG TABLET PO SCH ×3 (05:28→21:19)
[2019-06-30 07:11] LABS: T4 FREE 0.99 ng/dL (0.76-1.46)
[2019-06-30 08:00] VITALS: BP 126/80
[2019-06-30] MEDS: TAMSULOSIN HCL 0.4MG SR CAPSULE PO SCH (08:55)
[2019-06-30] MEDS: DOCUSATE SODIUM 100MG CAPSULE PO SCH ×2 (08:55→17:29)
[2019-06-30] MEDS: ASPIRIN 81MG EC TABLET PO SCH (08:55)
[2019-06-30] MEDS: LISINOPRIL 10MG TABLET PO SCH (08:56)
[2019-06-30] MEDS: ENOXAPARIN 40MG/0.4ML SYR SUBCUT SCH (08:56)
[2019-06-30] MEDS: CHOLECALCIFEROL (VIT D3) 400 UNIT TABLET PO SCH (08:56)
[2019-06-30] MEDS: MAGNESIUM OXIDE 400MG TABLET PO SCH (08:56)
[2019-06-30] MEDS: AMLODIPINE 2.5MG TABLET PO SCH ×2 (08:56→21:19)
[2019-06-30] MEDS: LIDOCAINE 5% PATCH TOP SCH (08:57)
[2019-06-30] MEDS: HYDROCODONE/ACETAMINOPHEN 5/325MG TABLET PO PRN (09:24)
[2019-06-30] MEDS: ACETAMINOPHEN 325MG TABLET PO PRN (10:46)
[2019-06-30] MEDS: HYDROCODONE/ACETAMINOPHEN 10/325MG TABLET PO PRN (12:45)
[2019-06-30 20:00] VITALS: BP 114/75
[2019-06-30] MEDS: POLYETHYLENE GLYCOL 3350 (17GM) 1 DOSE PACK PO SCH (21:19)
[2019-06-30] MEDS: FAMOTIDINE 20MG TABLET PO SCH (21:19)
[2019-07-01] MEDS: HYDROCODONE/ACETAMINOPHEN 10/325MG TABLET PO PRN ×2 (00:13→08:43)
[2019-07-01] MEDS: ZOLPIDEM TARTRATE 5MG TABLET PO PRN (02:15)
[2019-07-01] MEDS: LACTULOSE 20G/30ML UDC PO SCH ×3 (06:00→22:00)
[2019-07-01] MEDS: CYCLOBENZAPRINE 10MG TABLET PO SCH ×3 (06:36→22:17)
[2019-07-01 07:57] VITALS: BP 115/70
[2019-07-01] MEDS: ENOXAPARIN 40MG/0.4ML SYR SUBCUT SCH (08:37)
[2019-07-01] MEDS: CHOLECALCIFEROL (VIT D3) 400 UNIT TABLET PO SCH (08:38)
[2019-07-01] MEDS: AMLODIPINE 2.5MG TABLET PO SCH ×2 (08:38→22:17)
[2019-07-01] MEDS: ASPIRIN 81MG EC TABLET PO SCH (08:38)
[2019-07-01] MEDS: LIDOCAINE 5% PATCH TOP SCH (08:38)
[2019-07-01] MEDS: TAMSULOSIN HCL 0.4MG SR CAPSULE PO SCH (08:39)
[2019-07-01] MEDS: MAGNESIUM OXIDE 400MG TABLET PO SCH (08:39)
[2019-07-01] MEDS: LISINOPRIL 10MG TABLET PO SCH (08:39)
[2019-07-01] MEDS: DOCUSATE SODIUM 100MG CAPSULE PO SCH ×2 (08:39→16:48)
[2019-07-01 20:00] VITALS: BP 114/82
[2019-07-01] MEDS: FAMOTIDINE 20MG TABLET PO SCH (22:17)
[2019-07-01] MEDS: POLYETHYLENE GLYCOL 3350 (17GM) 1 DOSE PACK PO SCH (22:21)
[2019-07-02] MEDS: LACTULOSE 20G/30ML UDC PO SCH ×3 (06:00→21:27)
[2019-07-02] MEDS: CYCLOBENZAPRINE 10MG TABLET PO SCH ×3 (06:40→21:27)
[2019-07-02] MEDS: ACETAMINOPHEN 325MG TABLET PO PRN ×2 (06:40→13:55)
[2019-07-02 08:01] VITALS: BP 129/81
[2019-07-02] MEDS: TAMSULOSIN HCL 0.4MG SR CAPSULE PO SCH (08:09)
[2019-07-02] MEDS: ASPIRIN 81MG EC TABLET PO SCH (08:09)
[2019-07-02] MEDS: AMLODIPINE 2.5MG TABLET PO SCH ×2 (08:09→20:23)
[2019-07-02] MEDS: MAGNESIUM OXIDE 400MG TABLET PO SCH (08:09)
[2019-07-02] MEDS: LIDOCAINE 5% PATCH TOP SCH (08:10)
[2019-07-02] MEDS: ENOXAPARIN 40MG/0.4ML SYR SUBCUT SCH (08:10)
[2019-07-02] MEDS: DOCUSATE SODIUM 100MG CAPSULE PO SCH ×2 (08:10→17:13)
[2019-07-02] MEDS: CHOLECALCIFEROL (VIT D3) 400 UNIT TABLET PO SCH (08:10)
[2019-07-02] MEDS: LISINOPRIL 10MG TABLET PO SCH (08:10)
[2019-07-02] MEDS: HYDROCODONE/ACETAMINOPHEN 10/325MG TABLET PO PRN ×2 (08:14→19:53)
[2019-07-02] MEDS ORDERED: HYDROCODONE/ACETAMINOPHEN 5/325MG TABLET PO PRN (18:15)
[2019-07-02] MEDS ORDERED: ZOLPIDEM TARTRATE 5MG TABLET PO PRN (18:15)
[2019-07-02 20:00] VITALS: BP 124/84
[2019-07-02] MEDS: FAMOTIDINE 20MG TABLET PO SCH (20:23)
[2019-07-02] MEDS: POLYETHYLENE GLYCOL 3350 (17GM) 1 DOSE PACK PO SCH (20:23)
[2019-07-03 00:54] VITALS: BP 108/71
[2019-07-03 04:08] LABS: 25-HYDROXY VITAMIN D3 30 ng/mL (.)
[2019-07-03] MEDS: CYCLOBENZAPRINE 10MG TABLET PO SCH ×2 (05:52→13:21)
[2019-07-03] MEDS: LACTULOSE 20G/30ML UDC PO SCH ×2 (05:53→13:15)
[2019-07-03 08:00] VITALS: BP 121/84
[2019-07-03] MEDS: ASPIRIN 81MG EC TABLET PO SCH (09:16)
[2019-07-03] MEDS: MAGNESIUM OXIDE 400MG TABLET PO SCH (09:16)
[2019-07-03] MEDS: TAMSULOSIN HCL 0.4MG SR CAPSULE PO SCH (09:16)
[2019-07-03] MEDS: DOCUSATE SODIUM 100MG CAPSULE PO SCH (09:16)
[2019-07-03] MEDS: LISINOPRIL 10MG TABLET PO SCH (09:16)
[2019-07-03] MEDS: ENOXAPARIN 40MG/0.4ML SYR SUBCUT SCH (09:17)
[2019-07-03] MEDS: CHOLECALCIFEROL (VIT D3) 400 UNIT TABLET PO SCH (09:17)
[2019-07-03] MEDS: LIDOCAINE 5% PATCH TOP SCH (09:17)
[2019-07-03] MEDS: AMLODIPINE 2.5MG TABLET PO SCH (09:17)
[2019-07-03 11:25] VITALS: BP 121/84
[2019-07-03 12:02] VITALS: BP 112/69
[2019-07-03] MEDS: HYDROCODONE/ACETAMINOPHEN 10/325MG TABLET PO PRN (12:02)
[2019-07-03] MEDS ORDERED: ERGOCALCIFEROL 50000UNITS CAPSULE PO SCH (13:45)
== END 2019-07-03 15:00 | disposition home or self-care (01) | DRG 552 ==
PROVIDERS: ADMIT Physical Medicine & Rehabilitation Spinal Cord Injury Medicine; ATTEND Internal Medicine
DX: M48.061 Spinal stenosis, lumbar region without neurogenic claudication (principal); I42.9 Cardiomyopathy, unspecified; M48.03 Spinal stenosis, cervicothoracic region; G25.81 Restless legs syndrome; R20.0 Anesthesia of skin; G89.29 Other chronic pain; R53.81 Other malaise; R07.89 Other chest pain; I10 Essential (primary) hypertension; D64.9 Anemia, unspecified; M79.671 Pain in right foot; N40.0 Benign prostatic hyperplasia without lower urinary tract symptoms; R00.2 Palpitations; M79.604 Pain in right leg; M47.812 Spondylosis without myelopathy or radiculopathy, cervical region; M17.11 Unilateral primary osteoarthritis, right knee; E55.9 Vitamin D deficiency, unspecified; F41.9 Anxiety disorder, unspecified; R42 Dizziness and giddiness; M48.02 Spinal stenosis, cervical region; R53.1 Weakness; B35.1 Tinea unguium; L60.3 Nail dystrophy; R51 Headache; Z91.14 Patient's other noncompliance with medication regimen; Z88.6 Allergy status to analgesic agent; Z88.8 Allergy status to other drugs, medicaments and biological substances; Z79.899 Other long term (current) drug therapy; Z91.013 Allergy to seafood; Z90.79 Acquired absence of other genital organ(s)
CPT/HCPCS: 36415; 70551; 80048; 80053; 82306; 82607; 82728; 82746; 83540; 83550; 83735; 84100; 84134; 84153; 84439; 84443; 84481; 85025; 93970; 97110; 97112; 97116; 97162; 97167; 97530; 97535; J1650; J3420; G0103